=== PATIENT | male | born 1960 | race Caucasian/White ===

== ENCOUNTER 2016-09-21 18:38 | Emergency (ER) | payer OTHER ==
[2016-09-21 18:46] VITALS: BP 156/95; PULSE 53; RESP 20; O2SAT 98
--- NOTE | 2016-09-21 20:04 | ED.REPORT ---
HPI-Head Prob / Injury Date of Service Sep 21, 2016 ED Provider: Bebeto Swanson MD Pt is a 56 y.o. male who presents to the ED c/o a head injury onset 1629. 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 He denies LOC, however he does state that the injury caused him to fall to the ground. He reports associated neck pain and intermittent mild blurred vision. He denies headache, LOC, nausea, and vomiting. Nursing Notes Stated Complaint: HEAD INJURY Chief Complaint: Head, Face, Neck Trauma Nursing Notes Reviewed: Yes ([employer], [employer] not reconciled) Allergies: Coded Allergies: No Known Allergies (Unverified Allergy, Unknown, 09/21/16) General Time Seen by Provider: 20:03 Chief Complaint Blunt head trauma Hx Obtained From: Patient Arrived By: Walk-in Onset Occurred: 1 - 4 hours ago Symptom Duration: Since onset Caused by: Blow to head (With post route driver coin machines) Context: Occurred at: Home Location: : Neck Quality: Painful Severity: Current: Mild Immunizations: Tetanus up to date Past Medical History Past Medical History Healthy Past Surgical History Ankle surgery Vasectomy Reports: Tonsillectomy Smoking History Never Smoker Social History Alcohol Use: "Social" Drug Use: Denies drug use Ambulatory Status Independent Review of Systems Scalp injury Eyes: Reports: Blurred bilateral (Mild, intermittent) GI: Denies: Nausea, Vomiting Musculoskeletal: Reports: Neck pain Neurologic: Denies: Change LOC, Headache Complete sys rev & neg: except as marked. Physical Exam Initial Vital Signs Vital Signs (First) Date Time Temp Pulse Resp B/P Pulse Ox O2 Delivery O2 Flow Rate FiO2 09/21/16 18:46 36.1 53 20 156/95 98 Room Air Initial VS: Reviewed, Vital signs normal Respiratory: Breath sounds normal, No respiratory distress Cardiovascular: Regular rate & rhythm, Intact distal pulses Abdomen / GI: No distention Extremities: Vascular intact, Neuro intact Skin: Warm, Dry, No cyanosis Psychiatric: Mood/affect normal, Behavior normal, Normal thought content General/Constitutional: Awake, Alert, No acute distress, Well appearing, Well developed, Well hydrated, Well nourished, Not toxic appearing Head / Eyes: Normocephalic, PERRL Trauma - General: Positive: Abrasion (to scalp) ENT: Atraumatic Neck: Atraumatic Neck / Muscle Tenderness: Positive: Midline tenderness high (Mild) Trauma - Neck Specific: Positive: Midline tenderness high Soreness with ROM Neurologic: Oriented X3, Speech NL, No motor deficits, No sensory deficits Interpretation & Diagnostics CT Head Interpretation IMPRESSION: No acute intracranial disease process. Dictated by: Jodi Zambrano MD, PhD on 09/21/2016 at 20:48 Approved by: Jodi Zambrano MD, PhD on 09/21/2016 at 20:50 CT C-Spine Interpretation IMPRESSION: No fracture. No acute osseous lesion. If there are persistent symptoms or continued clinical suspicion for pathology, then MRI should be considered for further evaluation. Dictated by: Jodi Zambrano MD, PhD on 09/21/2016 at 20:51 Approved by: Jodi Zambrano MD, PhD on 09/21/2016 at 20:[address] C-Spine Findings: No acute disease, No fracture, No dislocation, Normal soft tissues Re-Eval/Medical Decision Med Decision/Clinical Course This is a 56-year-old healthy male struck in the head by post digger that bounced awkwardly and struck him on the scalp. He was knocked down, but did not lose consciousness. This got a mild headache, and some neck stiffness. He has no numbness weakness paresthesias, no nausea vomiting, no altered mental status. He has an abrasion on exam on the scalp, and mild cervical tenderness-but an otherwise normal exam. Give his age and mechanism, CT imaging was indicated and performed, but negative. The patient is up-to-date on tetanus vaccination. He had topical let applied to the abrasion, the wound was cleaned, bacitracin applied. The patient's reassured to be discharged in stable condition Source of Hx: Old records Re-Evaluation/Progress : Time of Eval: 21:07 Re-Evaluation/Progress Note: Pt rechecked. Discussed imagign and plan for discharge, pt understands and agrees with plan. Differential Diagnosis: Positive: Abrasion, Blunt head trauma, Negative: Basilar skull fracture, Cerebral contusion, Epidural hematoma, Epistaxis, Facial bone fracture, Gun shot wound head, Hematoma, Intracranial hemorrhage, Ocular injury, Penetrating head injury, Post-concussive syndrome, Scalp laceration, Skull fracture, Subdural hematoma Counseled Regarding: Diagnosis, Need for follow-up, When/why to return to ED Discharge & Departure Primary Impression: Blunt head trauma Encounter type: initial encounter Qualified Code: S09.8XXA - Other specified injuries of head, initial encounter Additional Impressions: Cervical strain Encounter type: initial encounter Qualified Code: S16.1XXA - Strain of muscle, fascia and tendon at neck level, initial encounter Abrasion Disposition: Home All VS Reviewed: Yes Condition: Improved Additional Instructions: 1. Your CT scans were normal with no findings of a skull fracture, brain injury , or serious neck injury. 2. It is okay for you to sleep. 3. Activities as tolerated. Expect to be sore over the next several days but symptoms should improve with time. 4. Take ibuprofen 400 mg up to 3 times a day if needed for pain or soreness. 5. Okay to shower. His scalp abrasion be sore the first few days, but should heal rapidly. 6. Return if new or worsening symptoms Referrals: OTHER,PHYSICIAN (PCP) [facility] Scribe Attestation Portions of this note were transcribed by Elva Sheth. I, Dr. Swanson personally performed the history, physical exam and medical decision-making; I reviewed and confirmed the accuracy of the information in the transcribed note. Signed by: Trish Rodriguez, 09/21/16 and 2110. copies to: [facility] Bebeto Swanson MD Sep 21, 2016 20:03 ELVA SHETH Sep 21, 2016 20:13
[2016-09-21] MEDS ORDERED: Lidocaine-Epi-Tetracaine Solution 3 mL Syringe TOPICAL ONE (20:10)
--- NOTE | 2016-09-21 20:52 | DRSVH ---
PROCEDURE: CT BRAIN WITHOUT CONTRAST ([id number]) INDICATIONS: trauma TECHNIQUE: Noncontrast 4.5 mm thick angled axial sections acquired from the foramen magnum to the vertex, with c oronal reformats. COMPARISON: None. FINDINGS: Image quality: Excellent. CSF spaces: Basal cisterns are patent. No extra-axial fluid collections. Ventricles are normal in size and shape. Brain: No midline shift. No intracranial masses or hemorrhage. Keller-white matter interface is norm al. No hematoma noted in the left parietal scalp. Skull and face: Calvarium and visualized facial bones are intact, without suspicious lesions. Sinuses: Visualized sinuses and mastoids are clear. IMPRESSION: No acute intracranial disease process. Dictated by: Jodi Zambrano MD, PhD on 09/21/2016 at 20:48 Approved by: Jodi Zambrano MD, PhD on 09/21/2016 at 20:50
--- NOTE | 2016-09-21 20:58 | DRSVH ---
PROCEDURE: CT CERVICAL SPINE WITHOUT CONTRAST ([id number]) INDICATIONS: trauma TECHNIQUE: Noncontrast 3 mm thick sections acquired from the skull base to the T4 level. Sagittal and coronal r eformats were then constructed. For radiation dose reduction, the following was used: automated exp osure control, adjustment of mA and/or kV according to patient size. COMPARISON: None. FINDINGS: Image quality: Excellent. Bones: No fractures or dislocations. Visualized superior ribs are intact. Multilevel degenerative d isc disease and facet arthropathy are noted. Soft tissues: Prevertebral soft tissues are normal in thickness. No paravertebral hematomas. No ap ical pneumothoraces. IMPRESSION: No fracture. No acute osseous lesion. If there are persistent symptoms or continued clin ical suspicion for pathology, then MRI should be considered for further evaluation. Dictated by: Jodi Zambrano MD, PhD on 09/21/2016 at 20:51 Approved by: Jodi Zambrano MD, PhD on 09/21/2016 at 20:56
[2016-09-21] MEDS ORDERED: Bacitracin Ointment Packet TOPICAL ONE (21:00)
[2016-09-21 21:28] VITALS: BP 139/81; PULSE 63; O2SAT 97
== END 2016-09-21 21:29 | disposition home or self-care (01) ==
LOC: SED 18:38
DX: S16.1XXA Strain of muscle, fascia and tendon at neck level, initial encounter (principal); S00.01XA Abrasion of scalp, initial encounter; W22.8XXA Striking against or struck by other objects, initial encounter; Y93.89 Activity, other specified; Y92.009 Unspecified place in unspecified non-institutional (private) residence as the place of occurrence of the external cause; Y99.8 Other external cause status